=== PATIENT | male | born 1995 | race Caucasian/White ===

== ENCOUNTER 2023-03-15 07:31 | Emergency (ER) | payer SELFPAY ==
[~2023-03-15] VITALS: Ht 180.3 cm; Wt 81.0 kg
[2023-03-15 07:54] VITALS: BP 112/71; PULSE 127; TEMP 98.7
[2023-03-15] MEDS ORDERED: ALBUTEROL SULF 2.5 MG/0.5ML(0.5%) NEB SOLN NEB ONE (08:00)
[2023-03-15] MEDS ORDERED: IPRATROPIUM BROM 0.5 MG/2.5ML INH SOL NEB ONE (08:00)
[2023-03-15] MEDS ORDERED: methylPREDNISolone SOD SUCC 40 MG/ML VL IM ONE (08:00)
[2023-03-15 08:08] VITALS: RESP 22; O2SAT 96
[2023-03-15] MEDS ORDERED: PRED20TA2 PO (09:10)
== END 2023-03-15 09:20 | disposition home or self-care (01) ==
LOC: ER 07:31
DX: J45.901 Unspecified asthma with (acute) exacerbation (principal)
CPT/HCPCS: 71045; 94640; 96372; 99283; J2920; J7644

== ENCOUNTER 2023-10-30 22:23 | Emergency (ER) | payer MEDICAID ==
[~2023-10-30 22:23] MED LIST: ALBUAER3 IN; PRED20TA2 PO
[2023-10-31] MEDS ORDERED: AMOX875T4 PO (03:13)
[2023-10-31] MEDS ORDERED: ACET500T58 PO (03:13)
[2023-10-31] MEDS ORDERED: PRED20TA2 PO (03:13)
== END 2023-10-30 23:09 | disposition left against medical advice (07) ==
LOC: ER 22:23
DX: J02.9 Acute pharyngitis, unspecified (principal); Z53.21 Procedure and treatment not carried out due to patient leaving prior to being seen by health care provider

== ENCOUNTER 2023-10-31 02:04 | Emergency (ER) | payer MEDICAID ==
[~2023-10-31] VITALS: Ht 180.3 cm; Wt 88.3 kg
[2023-10-31 02:19] VITALS: BP 117/68; PULSE 60; RESP 16; TEMP 98.1
[2023-10-31] MEDS ORDERED: AMOX875T4 PO (03:13)
[2023-10-31] MEDS ORDERED: PRED20TA2 PO (03:13)
[2023-10-31] MEDS ORDERED: ACET500T58 PO (03:13)
[2023-10-31 03:25] VITALS: O2SAT 96
== END 2023-10-31 03:57 | disposition home or self-care (01) ==
LOC: ER 02:04
DX: J03.90 Acute tonsillitis, unspecified (principal); J45.909 Unspecified asthma, uncomplicated; F17.210 Nicotine dependence, cigarettes, uncomplicated; Z79.2 Long term (current) use of antibiotics; Z79.899 Other long term (current) drug therapy